=== PATIENT | female | born 1990 | race Caucasian/White ===

== ENCOUNTER 2016-07-28 08:53 | Outpatient (CLI) | payer OTHER ==
--- NOTE | 2016-07-28 11:46 | DIAGNOSTIC IMAGING REPORT ---
PROCEDURE: US OB DETAILED ANATOMIC INDICATION: ANATOMY TECHNIQUE: Valdes scale, color, and spectral Doppler images of the second trimester gravid uterus were obtained. COMPARISON: None. FINDINGS: A single living intrauterine is in vertex presentation. There is regular cardiac activity at a rate of 143 beats per minute. The cervix is closed measuring approximately 4.1 cm in length. The amniotic fluid volume is subjectively normal. The placenta is anterior, to the maternal right, and away from the internal cervical os. Much of the surface of the placenta is covered with prominent hypoechoic spaces, some of which bulge into the amniotic cavity. Most of the spaces demonstrate low-level homogeneous internal echoes. The largest single space measures about 3.6 cm. The placental cord insertion is immediately adjacent to the largest cystic space. Biparietal diameter 4.9 cm, 20 weeks 5 days Head circumference 17.9 centimeters, 20 weeks 2 days Abdominal circumference 15.0 cm, 20 weeks 1 day Femur length 3.3 cm, 20 weeks 1 day Head to abdominal circumference ratio and femur length to abdominal circumference ratios are normal. Estimated weight 339 g plus/minus 51 g Composite gestational age 20 weeks 2 days There was visualization of a number of normal structures including the intracranial contents, facial features, nuchal region, spine, four-chamber heart and outflow tracts to the extent that could be visualized, diaphragm, fluid-filled stomach, kidneys, abdomen, urinary bladder, upper and lower extremities, and genitals. A three-vessel umbilical cord, normal and placental cord insertion sites were seen. IMPRESSION: 1. Single living intrauterine with a composite gestational age of 20 weeks 2 days. This is consistent with the clinically assigned gestational age of 19-week 6 days. 2. Symmetric growth and normal anatomy. 3. Abnormal appearance to the placenta. There are multiple prominent cystic spaces along the placental surface which could represent large placental lakes, intervillous thrombus, or potentially preplacental abruption (if the patient were symptomatic). Continued follow-up including cord Dopplers to assess for growth restriction, oligohydramnios, and further abruption is recommended. 4. Findings called to Dr. Doyle covering for Dr. Ayon.
== END 2016-07-28 23:00 ==
LOC: US SRH 08:53
DX: O43.891 Other placental disorders, first trimester (principal); Z3A.20 20 weeks gestation of pregnancy